=== PATIENT | male | born 1975 | race Caucasian/White ===

== ENCOUNTER 2016-12-24 09:01 | Emergency (ER) | payer OTHER ==
[~2016-12-24] VITALS: Wt 82.0 kg
[~2016-12-24 09:01] MED LIST: BACTDS PO; CEPH-443 PO
--- NOTE | 2016-12-24 10:00 | ERD ---
ER Documentation Chief Complaint Date/Time DATE: 12/24/16 TIME: 09:57 Chief Complaint r elbow pain and left shoulder pain for 2 days after lifting heavy HPI This is a 41-year-old male who presents to the emergency department today complaining of left shoulder and right elbow pain after lifting a transmission over his head 2 days ago. Patient states he has not taken any medication for the pain but "smoked weed and drink 2 beers". Denies any previous trauma. Denies any fevers or chills. ROS All systems reviewed and are negative except as per history of present illness. Medications Home Meds Active Scripts Naproxen* (Naprosyn*) 500 Mg Tablet, 500 MG PO BID Y for PAIN AND/OR INFLAMMATION, #30 TAB Prov:NHUNG DANIELLE PA-C 12/24/16 Sulfamethoxazole-Trimethoprim* (Bactrim* DS) 800-160 Mg Tab, 1 TAB PO BID for 5 Days, TAB Prov:LORENA JUARES NP 11/01/15 Cephalexin* (Keflex*) 500 Mg Capsule, 500 MG PO QID for 7 Days, CAP Prov:LORENA JUARES NP 11/01/15 Allergies Allergies: Coded Allergies: No Known Allergy (Unverified , 12/24/16) PMhx/Soc History of Surgery: Yes (appendectomy, cholecystectomy, LEFT KNEE) Anesthesia Reaction: No Hx Neurological Disorder: No Hx Respiratory Disorders: No Hx Cardiac Disorders: No Hx Psychiatric Problems: No Hx Miscellaneous Medical Probl: No Hx Alcohol Use: Yes (OCCASSIONAL) Hx Substance Use: No Hx Tobacco Use: No Smoking Status: Never smoker Physical Exam Vitals Vital Signs Date Time Temp Pulse Resp B/P Pulse Ox O2 Delivery O2 Flow Rate FiO2 12/24/16 09:04 98.6 69 20 116/71 98 Physical Exam Const: No acute distress Head: Atraumatic Eyes: Normal Conjunctiva ENT: Normal External Ears, Nose and Mouth. Neck: Full range of motion..~ No meningismus. Resp: Clear to auscultation bilaterally Cardio: Regular rate and rhythm, no murmurs Abd: Soft, non tender, non distended. Normal bowel sounds Skin: No petechiae or rashes MSK left shoulder with no obvious deformity, no effusion, no ecchymosis. Full active range of motion with pain with internal rotation and full flexion. Unable to assess strength secondary to pain. Tenderness to palpation over proximal biceps tendon. Pulses 2+. Distal neurovascularly intact. Right elbow with no obvious deformity no effusion, no ecchymosis. Full active range of motion with flexion and extension 0-180. Tenderness to palpation medial epicondyles. Pain with resisted pronation. Pulses 2+. Distal neurovascularly intact. Neur: Awake and alert Psych: Normal Mood and Affect Results 24 hrs DIAGNOSTIC IMAGING REPORT Patient: CHON TORIBIO : 1975 Age: 41 Sex: M MR #: [id number] DOS: 12/24/16 0000 Ordering MD: NHUNG DANIELLE PA-C Location: [facility] Room/Bed: PROCEDURE: XR Elbow. CLINICAL INDICATION: trauma TECHNIQUE: AP, lateral and oblique views of the right elbow performed. COMPARISON: None. FINDINGS: There is normal mineralization and alignment. No fracture or osseous lesion is identified. There are normal joints without evidence of arthritis or effusion. The soft tissues are unremarkable. IMPRESSION: Unremarkable examination. .Carmne Alvarado MD, MD Date Time Electronically viewed and signed by .Carmen Alvarado MD, MD on 12/24/2016 11:14 .M/ CC: NHUNG DANIELLE PA-C DIAGNOSTIC IMAGING REPORT Patient: CHON TORIBIO : 1975 Age: 41 Sex: M MR #: [id number] DOS: 12/24/16 0000 Ordering MD: NHUNG DANIELLE PA-C Location: [facility] Room/Bed: PROCEDURE: XR left shoulder. CLINICAL INDICATION: trauma TECHNIQUE: AP, Internal rotation views of the left shoulder were performed. COMPARISON: None. FINDINGS: There is normal osseous mineralization and alignment. No acute fracture or osseous lesion is identified. There are normal joints without evidence of arthritis or dislocation. The soft tissues are unremarkable. IMPRESSION: Unremarkable left shoulder. < .Carmen Alvarado MD, MD Date Time Electronically viewed and signed by .Carmen Alvarado MD, MD on 12/24/2016 11:14 .M/ CC: NHUNG DANIELLE PA-C Procedures/MDM This 41-year-old male who presents to the emergency department today complaining of left shoulder and right elbow pain after lifting a transmission over his head. Patient does have some tenderness on physical exam and patient was concerned that there is something really wrong. I did explain to the patient and I contain x-rays but that in order to look at the left tissue that he would need to follow-up with his primary care physician for referral to orthopedics for further evaluation. Patient did agree to the x-rays given that there was trauma. Per the radiology report edges of the left shoulder and right elbow are unremarkable. There is no acute fracture dislocation. Soft tissues are unremarkable. There is no evidence of arthritis or effusion. Patient's symptoms at this time is consistent with strain versus sprain. Next point to the patient that I cannot rule out a rotator cuff or labral pathology at this time and that he would need further evaluation from an orthopedic. Patient understood Patient declined any pain medication here in the emergency department. He will be discharged home with Naprosyn. He was given a sling for comfort. At this time the patient is stable for discharge and outpatient management. Patient should follow up with their PCP in the next 1-2 days. They may return to the emergency department sooner for any persistent or worsening of symptoms. Patient understood and agreed with the plan. Departure Diagnosis: Primary Impression: Shoulder injury Encounter type: initial encounter Laterality: left Qualified Code: S49.92XA - Shoulder injury, left, initial encounter Additional Impression: Elbow injury Encounter type: initial encounter Laterality: right Qualified Code: S59.901A - Elbow injury, right, initial encounter Condition: Fair NHUNG DANIELLE PA-C Dec 24, 2016 09:59
--- NOTE | 2016-12-24 11:14 | RADRPT ---
PROCEDURE: XR Elbow. CLINICAL INDICATION: trauma TECHNIQUE: AP, lateral and oblique views of the right elbow performed. COMPARISON: None. FINDINGS: There is normal mineralization and alignment. No fracture or osseous lesion is identified. There are normal joints without evidence of arthritis or effusion. The soft tissues are unremarkable. IMPRESSION: Unremarkable examination. .Carmen Alvarado MD, MD Date Time Electronically viewed and signed by .Carmen Alvarado MD, on 12/24/2016 11:14 .Maurizio/
--- NOTE | 2016-12-24 11:15 | RADRPT ---
PROCEDURE: XR left shoulder. CLINICAL INDICATION: trauma TECHNIQUE: AP, Internal rotation views of the left shoulder were performed. COMPARISON: None. FINDINGS: There is normal osseous mineralization and alignment. No acute fracture or osseous lesion is identified. There are normal joints without evidence of arthritis or dislocation. The soft tissues are unremarkable. IMPRESSION: Unremarkable left shoulder. < .Carmen Alvarado MD, MD Date Time Electronically viewed and signed by .Carmen Alvarado MD, on 12/24/2016 11:14 .Maurizio/
[2016-12-24] MEDS ORDERED: NAPR-260 PO (11:35)
== END 2016-12-24 11:49 | disposition home or self-care (01) ==
LOC: FTE 09:01
DX: S49.92XA Unspecified injury of left shoulder and upper arm, initial encounter (principal); S59.901A Unspecified injury of right elbow, initial encounter; X50.0XXA Overexertion from strenuous movement or load, initial encounter; Y92.9 Unspecified place or not applicable
CPT/HCPCS: 73030

== ENCOUNTER 2017-10-07 17:19 | Emergency (ER) | payer SELFPAY ==
[~2017-10-07] VITALS: Ht 175.3 cm; Wt 82.6 kg
[~2017-10-07 17:19] MED LIST changes: +NAPR-260 PO
[2017-10-07 17:22] VITALS: Ht 175.3 cm; Wt 82.6 kg
[2017-10-07] MEDS ORDERED: TETRACAINE 0.5% 4 ML OPH BOTH EYES ONE (18:30)
[2017-10-07] MEDS ORDERED: FLUORESCEIN STRIP LEFT EYE ONE (18:30)
[2017-10-07] MEDS ORDERED: OFLO5DRO46 LEFT EYE (18:53)
--- NOTE | 2017-10-07 19:00 | ERD ---
ER Documentation Chief Complaint Chief Complaint Left eye pain x 1 hour poked in eye HPI Patient is a 42-year-old male who accidentally got poked in the left eye with a pair of pliers today. He now has redness in his left medial eye and also blurry vision. Pain is moderate in severity. No nausea or vomiting. Patient admits to photosensitivity. ROS All systems reviewed and are negative except as per history of present illness. Medications Home Meds Active Scripts Ofloxacin* (Ocuflox*) 0.3%-5 Ml Ophth Drops, 1 DROP LEFT EYE QID for 7 Days, BOTTLE Prov:WIL MCCABE PA-C 10/07/17 Naproxen* (Naprosyn*) 500 Mg Tablet, 500 MG PO BID Y for PAIN AND/OR INFLAMMATION, #30 TAB Prov:NHUNG DANIELLE PA-C 12/24/16 Sulfamethoxazole-Trimethoprim* (Bactrim* DS) 800-160 Mg Tab, 1 TAB PO BID for 5 Days, TAB Prov:LORENA JUARES [employer] COUNSELOR 11/01/15 Cephalexin* (Keflex*) 500 Mg Capsule, 500 MG PO QID for 7 Days, CAP Prov:LORENA JUARES NP 11/01/15 Allergies Allergies: Coded Allergies: No Known Allergy (Unverified , 10/07/17) PMhx/Soc Medical and Surgical Hx: pt denies Medical Hx, pt denies Surgical Hx History of Surgery: Yes (appendectomy, cholecystectomy, LEFT KNEE) Anesthesia Reaction: No Hx Neurological Disorder: No Hx Respiratory Disorders: No Hx Cardiac Disorders: No Hx Psychiatric Problems: No Hx Miscellaneous Medical Probl: No Hx Alcohol Use: No Hx Substance Use: No Hx Tobacco Use: No Smoking Status: Never smoker FmHx Family History: No diabetes Physical Exam Vitals Vital Signs Date Time Temp Pulse Resp B/P Pulse Ox O2 Delivery O2 Flow Rate FiO2 10/07/17 17:22 97.6 67 19 116/84 99 Physical Exam INITIAL VITAL SIGNS: Reviewed by me GENERAL: Awake, alert and oriented x 4, well appearing, nontoxic, speaking in full sentences. No acute distress HEAD: Atraumatic NECK: Supple. No masses. Full range of motion. No meningismus. No midline tenderness. EYES: Left conjunctiva has some conjunctival hemorrhage in the medial aspect, pupils equal reactive to light, extraocular movements intact, visual acuity within normal limits, fluorescein examination is negative for any areas of uptake THROAT: No tonilar erythema or edema. No exudates. Uvula midline. No kissing tonsils. RESPIRATORY: Clear to auscultation bilaterally. Symmetric chest wall rise. No wheezing or rales. No accessory muscle use. CV: Regular rate and rhythm. No murmurs, rubs, or gallops. Results 24 hrs Current Medications Medications (Trade) Dose Ordered Sig/Ilene Route PRN Reason Start Time Stop Time Status Last Admin Dose Admin Tetracaine HCl (Tetracaine 0.5% Steri-Unit Tamika) 1 drop ONCE ONCE BOTH EYES 10/07/17 18:30 10/07/17 18:31 DC Fluorescein Sodium (Odsrc-H-Osmkl) 1 strip ONCE ONCE LEFT EYE 10/07/17 18:30 10/07/17 18:31 DC Procedures/MDM This patient has a left eye pain after blunt eye trauma. He has subconjunctival hemorrhage. The rest of the examination is normal and fluorescein examination is negative for any notable areas of uptake or abrasions. No evidence of any ocular emergencies. His visual acuity is within normal limits. He is discharged with Ocuflox. He is also given information for [facility] to follow-up if his symptoms do not resolve. Patient counseled regarding my diagnostic impression and care plan. Prior to discharge all questions answered. Pt agrees with treatment plan and understands strict return precautions. Pt is instructed to follow up with primary care provider within 24-48 hours. Precautionary instructions provided including instructions to return to the ER if not improving or for any worsening or changing symptoms or concerns. Departure Diagnosis: Primary Impression: Subconjunctival hemorrhage Additional Impression: Blunt eye trauma Condition: Stable Patient Instructions: Subconjunctival Hemorrhage Referrals: [facility] Hours: Mon - Mon 9:00 AM - 5:00 PM Additional Instructions: Follow up with [facility] if needed, or return for new or worsening symptoms. Call your primary care doctor TOMORROW for an appointment during the next 1-2 days.See the doctor sooner or return here if your condition worsens before your appointment time. WIL MCCABE PA-C Oct 07, 2017 19:00
== END 2017-10-07 19:18 | disposition home or self-care (01) ==
LOC: FTE 17:19
DX: H11.33 Conjunctival hemorrhage, bilateral (principal); X58.XXXA Exposure to other specified factors, initial encounter; Y92.9 Unspecified place or not applicable
CPT/HCPCS: 99283

== ENCOUNTER 2018-03-12 00:32 | Emergency (ER) | END 2018-03-12 05:02 | disposition home or self-care (01) ==